=== PATIENT | female | born 1990 | race Hispanic/Latino ===

== ENCOUNTER → 2018-09-26 10:00 | Outpatient (CLI) | payer OTHER, SELFPAY | DX: Z23 Encounter for immunization (principal) | CPT/HCPCS: 90471; 90686 ==

== ENCOUNTER → 2019-11-17 08:21 | Outpatient (CLI) | payer OTHER, SELFPAY | DX: Z23 Encounter for immunization (principal) ==

== ENCOUNTER → 2020-09-19 | Outpatient (CLI) | payer OTHER, SELFPAY | PROVIDERS: Referring Provider Internal Medicine; Visit Provider Internal Medicine | DX: Z23 Encounter for immunization (principal) | CPT/HCPCS: 90471; 90686 ==

== ENCOUNTER → 2020-10-10 10:59 | Outpatient (CLI) | payer OTHER, SELFPAY ==
[2020-10-10 11:44] LABS: COVID19 -Nasal RAPID Negative (Negative)
== END ==
PROVIDERS: PCP Physician Assistant; Visit Provider Physician Assistant
DX: Z11.59 Encounter for screening for other viral diseases (principal)
CPT/HCPCS: 87635

== ENCOUNTER → 2020-11-15 13:11 | Outpatient (CLI) | payer OTHER, SELFPAY ==
[2020-11-15] MEDS: COVID-19 VACC(MODERNA-1)/PF 100 MCG/0.5 ML VIAL IM (13:18)
== END ==
PROVIDERS: PCP Physician Assistant; Visit Provider Internal Medicine
DX: Z23 Encounter for immunization (principal)
CPT/HCPCS: 0011A; 91301

== ENCOUNTER 2020-11-25 16:03 | Emergency (ER) | payer OTHER, SELFPAY ==
[2020-11-25 16:16] VITALS: BP 117/74; PULSE 83; RESP 17; TEMP 36.9; O2SAT 99
--- NOTE | 2020-11-25 16:31 | ED.GENADULT ---
HPI - General Adult General Chief complaint: Blood/Body fluid exposure Stated complaint: INSTRUMENT GOT SKIN Time Seen by Provider: 11/25/20 16:31 Source: patient Mode of arrival: Ambulatory Limitations: no limitations History of Present Illness HPI narrative: This is a 30-year-old female who comes with a blood exposure in the OR. Patient was trying not to drop and instrument when she had a puncture wound at the webbing of her 4th and 5th fingers by a rongeur. Patient states she washed out. This was several hours ago. The source patient was tested and is negative for HIV, hepatitis C and hepatitis B surface antibody is pending. Patient does not know her tetanus has been updated in the last 5 years. She has had her hepatitis-B series. She denies any other medical issues. No allergies to medications. Patient denies any other injuries. No other symptoms at this time. Related Data Home Medications Medication Instructions Recorded Confirmed No Known Home Medications 11/25/20 11/25/20 Allergies Allergy/AdvReac Type Severity Reaction Status Date / Time No Known Drug Allergies Allergy Verified 11/25/20 16:18 Review of Systems Review of Systems ROS Unobtainable: All systems reviewed & are unremarkable except as noted in HPI and below Patient History Social History Smoking Status: Never smoker Smoking Status: Never smoker alcohol intake frequency: a few times a month Substance Use Type: does not use Exam Narrative Exam Narrative: GENERAL: Alert and oriented x three, well-nourished female in mild distress. HEENT: Head normocephalic, atraumatic, EOMI, pupils reactive, face symmetric, moist mucous membranes NECK: Supple, full range of motion CARDIOVASCULAR: Regular rate and rhythm without murmurs, rubs or gallops. RESPIRATORY: Breath sounds equal bilaterally, no wheezes rales or rhonchi. EXTREMITIES: Normal range of motion, no clubbing or edema. Neurovascularly intact. Patient has a small puncture wound with the fourth-fifth interspace/webbing of her hand. Full range of motion. neurovascularly intact. NEUROLOGICAL: Cranial nerves II through XII grossly intact. Moving all extremities SKIN: Warm, dry, no petechiae, no rashes or lesions. Initial Vital Signs Initial Vital Signs: Vital Signs Temperature 98.4 F 11/25/20 16:16 Pulse Rate 83 11/25/20 16:16 Respiratory Rate 17 11/25/20 16:16 Blood Pressure 117/74 11/25/20 16:16 Pulse Oximetry 99 11/25/20 16:16 Course Orders Ordered: Discontinued Medications Diphtheria/Tetanus/Acell Pertussis (Tet,Diph,Pertuss(Acell),Vac/Pf 0.5 Ml Syringe) 0.5 ml IM .ONCE ONE Stop: 11/25/20 16:46 Last Admin: 11/25/20 16:48 Dose: 0.5 ml Documented by: ANDRES Vital Signs Vital signs: Vital Signs - 8 hr 11/25/20 16:16 11/25/20 16:55 Temperature 98.4 F Pulse Rate 83 76 Respiratory Rate 17 14 Blood Pressure 117/74 105/71 Pulse Oximetry 99 76 L Medical Decision Making Lab Data Labs: Lab Results 11/25/20 11/25/20 Range/Units 16:25 16:25 ALT 23 (<35) IU/L Hep Bs Antigen Negative (NEGATIVE) s/c Hepatitis C Antibody Negative (NEGATIVE) s/c HIV 1&2 Ab/P24 Ag 4thGn Negative (NEGATIVE) MDM Narrative Medical decision making narrative: Labs were reviewed for source patient. Initial HIV and hepatitis-C is negative. We discussed that there is the possibility that patient would be early prior to seroconversion. After discussion patient prefers to defer any prophylaxis. Plan to update tetanus today. She has had her hepatitis-B immunizations. Plan for patient to follow-up with [facility] for regular protocol of serial testing. Labs today show negative HIV, Hep C and Hep Bs antigen. Hep Bs antibody pending. Reviewed patient labs with her over the phone. Discharge Plan Departure Patient Disposition: Home Clinical Impression: Needle stick injury of finger of right hand Instructions: DI for Accidental Exposure to Body Fluids Activity Restrictions/Additional Instructions: Follow-up with [facility] for recheck. You will need serial testing for your exposure. Your labs are currently pending. Follow-up with your provider for her final results. Wound Care: Keep wound(s) clean and dry. Wash daily with soap and water only. Do not use over the counter products (alcohol or peroxide)on the wounds unless instructed by a physician. If wound condition worsens (increased/expanding redness, developing fluid blisters, or worsening pain), either contact your doctor for an urgent re-assessment , or return to the Emergency Department. Return if fever greater than 100.4 Fahrenheit, increased swelling, increasing pain or worsening symptoms such as increased discharge or spreading redness or other new or concerning symptoms. Prescriptions: No Action No Known Home Medications RF: 0 Referrals: Lyric Benz PA-C [Primary Care Provider] -
--- NOTE | 2020-11-25 16:36 | PC.NURSE ---
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 The instrument his a blunt tip that is narrow enough to be sharp. Her skin is not in tact and the instrument went through a contaminated glove. The wound was immediately milked and cleansed with surgical scrub iodine then a layer of dermabond skin adhesive was placed over the wound and the patient went back to work.
[2020-11-25] MEDS: TET,DIPH,PERTUSS(ACELL),VAC/PF 0.5 ML SYRINGE IM (16:48)
[2020-11-25 16:54] LABS: Alanine Aminotransferase 23 IU/L (<35)
[2020-11-25 16:55] VITALS: BP 105/71; PULSE 76; RESP 14; O2SAT 76
[2020-11-25 17:37] LABS: Hepatitis B Surface Antigen NEGATIVE s/c (NEGATIVE)
[2020-11-25 17:54] LABS: HIV 1 & 2 Ab/Ag 4th Gen Combo NEGATIVE (NEGATIVE); Hep C Virus Ab w/Reflex Quant NEGATIVE s/c (NEGATIVE)
[2020-11-26 04:39] LABS: Hepatitis B Surf Ab Qualitativ Reactive (.)
== END 2020-11-25 16:56 | disposition home or self-care (01) ==
PROVIDERS: Emergency Provider Emergency Medicine; PCP Physician Assistant
DX: S61.239A Puncture wound without foreign body of unspecified finger without damage to nail, initial encounter (principal); Z77.21 Contact with and (suspected) exposure to potentially hazardous body fluids; W46.1XXA Contact with contaminated hypodermic needle, initial encounter; Y99.0 Civilian activity done for income or pay; Z23 Encounter for immunization
CPT/HCPCS: 90471; 99281; 99283; 90715

== ENCOUNTER → 2020-12-11 16:20 | Outpatient (CLI) | payer OTHER, SELFPAY ==
[2020-12-11] MEDS: COVID-19 VACC #2, MRNA(MOD) 100 MCG/0.5 ML VIAL IM (16:24)
== END ==
PROVIDERS: PCP Physician Assistant; Visit Provider Internal Medicine
DX: Z23 Encounter for immunization (principal)
CPT/HCPCS: 0012A; 91301

== ENCOUNTER → 2021-06-19 13:58 | Outpatient (CLI) | payer OTHER, SELFPAY ==
[2021-06-19 14:26] LABS: COVID19 -Nasal RAPID Negative (Negative)
== END ==
PROVIDERS: Visit Provider Physician Assistant
DX: R05 Cough (principal); Z20.822 Contact with and (suspected) exposure to COVID-19
CPT/HCPCS: 87635

== ENCOUNTER → 2021-06-23 17:11 | Outpatient (CLI) | payer OTHER, SELFPAY ==
[2021-06-23 17:33] LABS: COVID19 -Nasal RAPID Negative (Negative)
== END ==
PROVIDERS: Referring Provider Physician Assistant; Visit Provider Physician Assistant
DX: Z20.822 Contact with and (suspected) exposure to COVID-19 (principal)
CPT/HCPCS: 87635

== ENCOUNTER → 2021-06-27 18:07 | Outpatient (CLI) | payer OTHER, SELFPAY ==
[2021-06-27 19:08] LABS: COVID19 -Nasal RAPID Negative (Negative)
== END ==
PROVIDERS: Referring Provider Nurse Practitioner; Visit Provider Nurse Practitioner
DX: Z20.822 Contact with and (suspected) exposure to COVID-19 (principal)
CPT/HCPCS: 87635

== ENCOUNTER → 2021-09-19 07:49 | Outpatient (CLI) | payer OTHER, SELFPAY ==
[2021-09-19] MEDS: COVID-19 VACC #3, MRNA(MOD) 50 MCG/0.25 ML VIAL IM (08:03)
== END ==
PROVIDERS: Visit Provider Internal Medicine
DX: Z23 Encounter for immunization (principal)
CPT/HCPCS: 0013A; 91301

== ENCOUNTER 2022-07-24 16:31 | Emergency (ER) | payer OTHER, SELFPAY ==
[2022-07-24 16:41] VITALS: BP 118/89; PULSE 89; RESP 16; TEMP 36.4; O2SAT 99; BMI 29.9
--- NOTE | 2022-07-24 16:56 | ED_ITS ---
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 She states that she washed it right away, encouraged bleeding, denies any history of HIV or hepatitis. She is vaccinated against hepatitis-B. post exposure prophylaxis forearm initiated. States her tetanus is up-to-date. Related Data Home Medications Medication Instructions Recorded Confirmed No Known Home Medications 11/25/20 11/25/20 Allergies Allergy/AdvReac Type Severity Reaction Status Date / Time No Known Drug Allergies Allergy Verified 11/25/20 16:18 Review of Systems <NAHUM Montoya - Last Filed: 07/24/22 18:17> Review of Systems Narrative: Review of systems is negative for acute abnormalities unless otherwise noted in HPI Patient History <NAHUM Montoya - Last Filed: 07/24/22 18:17> Social History Smoking Status: Never smoker Smoking Status: Never smoker alcohol intake frequency: a few times a month Substance Use Type: does not use Exam <NAHUM Montoya - Last Filed: 07/24/22 18:17> Narrative Exam Narrative: Reviewed vitals signs and nursing notes. General: cooperative, comfortable, in no acute distress, well groomed HEENT: symmetrical facial expressions, moist mucous membranes Skin: brisk capillary refill, without pallor or erythema Neuro: normal speech and cognition, A&O x3, ambulatory, clear speech Psych: mental status is grossly normal, congruent mood, normal affect, pleasant and cooperative Initial Vital Signs Initial Vital Signs: Vital Signs Temperature 97.5 F L 07/24/22 16:41 Pulse Rate 89 07/24/22 16:41 Respiratory Rate 16 07/24/22 16:41 Blood Pressure 118/89 07/24/22 16:41 Pulse Oximetry 99 07/24/22 16:41 Oxygen Delivery Method 07/24/22 16:41 <Nazario De Luna DO - Last Filed: 07/24/22 18:19> Initial Vital Signs Initial Vital Signs: Vital Signs Temperature 97.5 F L 07/24/22 16:41 Pulse Rate 89 07/24/22 16:41 Respiratory Rate 16 07/24/22 16:41 Blood Pressure 118/89 07/24/22 16:41 Pulse Oximetry 99 07/24/22 16:41 Oxygen Delivery Method 07/24/22 16:41 Course <NAHUM Montoya - Last Filed: 07/24/22 18:17> Orders Ordered: ED Orders 07/24/22 17:10 Alanine Aminotransferase Stat HIV 1 & 2 Ab/Ag 4th Gen Combo Stat Hep C Virus Ab w/Reflex Quant Stat Hepatitis B Surface Antigen Stat Discontinued Medications Diphtheria/Tetanus/Acell Pertussis (Tet,Diph,Pertuss(Acell),Vac/Pf 0.5 Ml Syringe) 0.5 ml IM .ONCE ONE Stop: 07/24/22 16:50 Last Admin: 07/24/22 17:29 Dose: 0.5 ml Documented By: NOEL Vital Signs Vital signs: Vital Signs - 8 hr 07/24/22 16:41 Temperature 97.5 F L Pulse Rate 89 Respiratory Rate 16 Blood Pressure 118/89 Pulse Oximetry 99 Oxygen Delivery Method Room Air <Nazario De Luna DO - Last Filed: 07/24/22 18:19> Orders Ordered: ED Orders 07/24/22 17:10 Alanine Aminotransferase Stat HIV 1 & 2 Ab/Ag 4th Gen Combo Stat Hep C Virus Ab w/Reflex Quant Stat Hepatitis B Surface Antigen Stat Discontinued Medications Diphtheria/Tetanus/Acell Pertussis (Tet,Diph,Pertuss(Acell),Vac/Pf 0.5 Ml Syringe) 0.5 ml IM .ONCE ONE Stop: 07/24/22 16:50 Last Admin: 07/24/22 17:29 Dose: 0.5 ml Documented By: NOEL Vital Signs Vital signs: Vital Signs - 8 hr 07/24/22 16:41 Temperature 97.5 F L Pulse Rate 89 Respiratory Rate 16 Blood Pressure 118/89 Pulse Oximetry 99 Oxygen Delivery Method Room Air Medical Decision Making <NAHUM Montoya - Last Filed: 07/24/22 18:17> Lab Data Labs: Lab Results 07/24/22 Range/Units 17:10 ALT 20 (<35) IU/L MDM Narrative Medical decision making narrative: 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 Wound was clean, post exposure paperwork was completed, labs were drawn, patient will follow-up with occupational health. Declined HIV or hepatitis prophylaxis medications. Patient is appropriate and amenable to discharge home. Vital signs are stable on repeat examination is unremarkable. Patient has been informed of results. Patient has been given strict return to ER precautions for any new or worsening symptoms. Patient understands to follow up closely with outpatient providers as instructed. Patient understands plan and agrees to discharge home. All questions and concerns answered at this time. [id number] <Nazario De Luna, DO - Last Filed: 07/24/22 18:19> Lab Data Labs: Lab Results 07/24/22 Range/Units 17:10 ALT 20 (<35) IU/L Discharge Plan Departure Patient Disposition: Home Clinical Impression: Needlestick injury accident with exposure to body fluid Instructions: DI for Accidental Exposure to Body Fluids Activity Restrictions/Additional Instructions: You had a needle stick injury today and your paperwork for post exposure prophylaxis was completed, please follow-up with occupational health, [id number] Please come back or reference this chart for any future needs pertaining to this incident. *What to do: *Please continue to take your regular medications as directed. [ ] New medication prescriptions sent to your pharmacy: [ ] [ ] New medication written as a paper prescription [ ] No new medications given *Please follow up with your primary care provider in 2-3 days, call for an appointment. Let them know you were seen in the Emergency Department and that we asked that you be seen for follow-up. We will electronically transmit a record of today's note if your PCP is in our system *If you do not have a primary care provider please contact [phone] to establish care with one of the [facility] primary care providers. *Return to Emergency Department if you should have any new, worsening, or concerning symptoms, such as [fever greater than 101F, chills, worsening pain, persistent vomiting or other bothersome symptoms]. Prescriptions: No Action No Known Home Medications Referrals: Miscellaneous,Doctor, MD [Primary Care Provider] - Visit Report Forms: Patient Portal/API <Nazario De Luna DO - Last Filed: 07/24/22 18:19> Cosign ED Attending Cosignature Attestation: Dr De Luna Co-Sign Statement: I was available for consultation during this patient's emergency department visit. This chart is signed by myself for administrative purposes only. I did not have direct contact with this patient during this visit. They were seen independently by the APC.
[2022-07-24] MEDS: TET,DIPH,PERTUSS(ACELL),VAC/PF 0.5 ML SYRINGE IM (17:29)
[2022-07-24 17:38] LABS: Alanine Aminotransferase 20 IU/L (<35)
--- NOTE | 2022-07-24 17:42 | PC.NURSE ---
Packets were filled out to best ability. Blood was drawn by OR staff. Pt was given instructions to send specific packet to employee health and the nursing associate. Pt given tetanus vaccine.
[2022-07-24 19:26] LABS: HIV 1 & 2 Ab/Ag 4th Gen Combo NEGATIVE (NEGATIVE); Hep C Virus Ab w/Reflex Quant NEGATIVE s/c (NEGATIVE); Hepatitis B Surface Antigen NEGATIVE s/c (NEGATIVE)
[2022-07-27 10:33] LABS: Hepatitis B Surf Ab Qualitativ Reactive (.)
== END 2022-07-24 17:45 | disposition home or self-care (01) ==
PROVIDERS: Emergency Provider Nurse Practitioner Critical Care Medicine
DX: Z77.21 Contact with and (suspected) exposure to potentially hazardous body fluids (principal); Z23 Encounter for immunization; Y99.0 Civilian activity done for income or pay
CPT/HCPCS: 36415; 84460; 86706; 86803; 87340; 87389; 90471; 99283; 90715

== ENCOUNTER → 2022-11-04 07:39 | Outpatient (CLI) | payer OTHER, SELFPAY | PROVIDERS: Referring Provider Internal Medicine; Visit Provider Internal Medicine | DX: Z23 Encounter for immunization (principal) | CPT/HCPCS: 90471; 90686 ==

== ENCOUNTER → 2023-06-17 17:02 | Outpatient (CLI) | payer OTHER, SELFPAY ==
[2023-06-19 08:09] LABS: Rubeola Measles IgG > 300.0 AU/mL (Immune >16.4); Varicella IgG Antibody 2880 index (Immune >165)
== END ==
PROVIDERS: Referring Provider Obstetrics & Gynecology; Visit Provider Obstetrics & Gynecology
DX: Z13.9 Encounter for screening, unspecified (principal)
CPT/HCPCS: 36415; 86735; 86762; 86765; 86787

== ENCOUNTER → 2023-08-20 05:51 | Outpatient (CLI) | payer SELFPAY | PROVIDERS: Referring Provider Family Medicine; Visit Provider Family Medicine | DX: Z23 Encounter for immunization (principal) | CPT/HCPCS: 90471; 90686 ==

== ENCOUNTER → 2024-04-18 11:14 | Outpatient (CLI) | payer OTHER, SELFPAY ==
[2024-04-20 15:12] LABS: Candida species Negative (Negative); Gardnerella vaginalis Negative (Negative); Trichomoas vaginalis Negative (Negative)
[2024-04-23 09:36] LABS: Chlamydia trachomatis Negative (Negative); Mycoplasma genitalium Negative (Negative); Neisseria gonorrhoeae Negative (Negative)
== END ==
PROVIDERS: Visit Provider Obstetrics & Gynecology
DX: N89.8 Other specified noninflammatory disorders of vagina (principal)
CPT/HCPCS: 87070; 87205; 87480; 87491; 87510; 87563; 87591; 87660

== ENCOUNTER → 2024-10-03 | Outpatient (CLI) | payer OTHER, SELFPAY | PROVIDERS: Referring Provider Internal Medicine; Visit Provider Internal Medicine | DX: Z23 Encounter for immunization (principal) | CPT/HCPCS: 90471; 90656 ==